=== PATIENT | male | born 1970 | race Two or more races ===

== ENCOUNTER 2023-01-16 23:03 | Inpatient (IN) | payer OTHER ==
[~2023-01-16] VITALS: Ht 167.6 cm; Wt 90.7 kg
[2023-01-16] MEDS ORDERED: ONDANSETRON HCL/PF 4 MG/2 ML VIAL ONE (23:41)
[2023-01-17] MEDS ORDERED: IV NS 0.9% 1,000 ML BAG IV ONE
[2023-01-17] MEDS ORDERED: ONDANSETRON HCL/PF 4 MG/2 ML VIAL IVP ONE
[2023-01-17 00:21] LABS: BASOPHILS # (AUTO) 0.1 K/uL (0.0-0.2); BASOPHILS % (AUTO) 0.9 % (0.0-2.0); EOSINOPHILS # (AUTO) 0.1 K/uL (0.0-0.7); EOSINOPHILS % (AUTO) 0.4 % (0.0-6.0); HEMATOCRIT 48 % (39-51); HEMOGLOBIN 15.3 g/dL (13.5-17.5); LYMPHOCYTES # (AUTO) 0.4 K/uL (0.8-4.8); LYMPHOCYTES % (AUTO) 2.5 % (20.0-44.0); MEAN CORPUSCULAR HEMOGLOBIN 30 PG (26.0-33.0); MEAN CORPUSCULAR HGB CONC 32 g/dl (31.0-36.0); MEAN CORPUSCULAR VOLUME 93 fL (80-96); MONOCYTES # (AUTO) 1.1 K/uL (0.1-1.30); MONOCYTES % (AUTO) 6.8 % (2.0-12.0); NEUTROPHILS % (AUTO) 89.4 % (43.0-81.0); PLATELET COUNT (AUTO) 352 K/uL (150-450); RED BLOOD CELL COUNT(AUTO) 5.11 MIL/uL (4.5-6.0); RED CELL DISTRIBUTION WIDTH 15.7 % (11.5-15.0); WHITE BLOOD COUNT (AUTO) 15.7 K/uL (4.3-11.0)
[2023-01-17 00:23] LABS: INR 0.97 (0.91-1.10); PARTIAL THROMBOPLASTIN TIME 31.2 SEC (24.3-34.3); PROTHROMBIN TIME 10.3 SECS (9.2-11.1)
[2023-01-17] MEDS ORDERED: IOHEXOL-300 100 ML VIAL IV ONE ×2 (01:02→02:02)
[2023-01-17] MEDS ORDERED: IV NS 0.9% 250 ML IV ONE ×2 (01:02→02:02)
[2023-01-17] MEDS ORDERED: CT SWABBABLE VALVE TRANS SET 1 EA INFUS.SET MC ONE ×2 (01:02→02:02)
[2023-01-17 01:06] LABS: LACTIC ACID 2.9 mmol/L (0.4-2.0)
[2023-01-17] MEDS ORDERED: PIPERACI/TAZO 3.375GM/D5W 50ML PB IV ONE (01:17)
[2023-01-17] MEDS ORDERED: PIPERACILLIN /TAZOBACTAM 3.375 G in IV D5W 50 ML IV ONE (01:30)
[2023-01-17] MEDS ORDERED: IV NS 0.9% 1,000 ML IV ONE ×2 (01:30→05:00)
[2023-01-17 01:44] LABS: ALANINE AMINOTRANSFERASE 22 U/L (12-78); ALBUMIN 4.1 g/dL (3.4-5.0); ALKALINE PHOSPHATASE 153 U/L (46-116); ASPARTATE AMINOTRANSFERASE 14 U/L (15-37); BILIRUBIN,DIRECT 0.1 mg/dL (0.0-0.2); BILIRUBIN,TOTAL 0.7 mg/dL (0.2-1.0); CALCIUM, SERUM 10.1 mg/dL (8.5-10.1); CARBON DIOXIDE 27 mmol/L (21-32); CHLORIDE 96 mmol/L (98-107); CREATININE 2.1 mg/dL (0.6-1.3); GLUCOSE 161 mg/dL (74-106); LIPASE 29 U/L (16-77); SODIUM SERUM 137 mmol/L (136-145); TOTAL PROTEIN, SERUM 8.7 g/dL (6.4-8.2); UREA NITROGEN, BLOOD 28 mg/dL (7-18)
[2023-01-17] MEDS ORDERED: ONDANSETRON HCL/PF - ER 4 MG/2 ML VIAL IV ONE (04:00)
[2023-01-17] MEDS ORDERED: ONDANSETRON HCL/PF 4 MG/2 ML VIAL ONE (04:22)
[2023-01-17] MEDS ORDERED: FENTANYL PF 250MCG/5ML AMPUL ONE (06:23)
[2023-01-17] MEDS ORDERED: MIDAZOLAM HCL 2 MG/2ML VIAL ONE (06:24)
[2023-01-17] MEDS ORDERED: HYDROMORPHONE INJ 2 MG/ML DISP.SYRIN ONE (06:24)
[2023-01-17] MEDS ORDERED: FAMOTIDINE/PF INJ 20 MG/2 ML VIAL IV ONE (06:24)
[2023-01-17] MEDS ORDERED: ANESTHESIA TRAY IN PYXIS 1 EA TRAY MC ONE (06:27)
[2023-01-17] MEDS ORDERED: BUPIVACAINE 0.5 % PF 150 MG/30 ML VIAL ONE (06:27)
[2023-01-17] MEDS ORDERED: LIDOCAINE 1%-EPI 1:100,000 20 ML VIAL ONE (06:28)
[2023-01-17] MEDS ORDERED: ONDANSETRON HCL/PF 4 MG/2 ML VIAL IVP PRN (06:30)
[2023-01-17] MEDS ORDERED: ACETAMINOPHEN 650 MG/SUPP.RECT RC PRN (06:30)
[2023-01-17] MEDS ORDERED: ENOXAPARIN SODIUM 40 MG/0.4 ML DISP.SYRIN SQ SCH ×2 (06:30→19:00)
[2023-01-17] MEDS ORDERED: ACETAMINOPHEN 325 MG TABLET PO PRN (06:30)
[2023-01-17] MEDS ORDERED: METRONIDAZOLE 500MG/ NS 100ML 100 ML IV ONE (07:27)
[2023-01-17] MEDS ORDERED: HYDROMORPHONE 1 MG/1 ML DISP.SYRIN ONE (08:57)
[2023-01-17] MEDS ORDERED: PIPERACILLIN /TAZOBACTAM 3.375 G in IV D5W 50 ML IV SCH (09:00)
[2023-01-17] MEDS: PANTOPRAZOLE 40 MG VIAL IV SCH (09:00)
[2023-01-17] MEDS: MORPHINE SULFATE INJ 2 MG/ML DISP.SYRIN IV PRN ×2 (11:08→20:57)
[2023-01-17] MEDS: ZOSYN IVPB 3.375 G in IV D5W 50ml IV SCH ×2 (11:08→18:05)
[2023-01-17] MEDS: IV NS 0.9% 1,000 ML IV PRN (11:09)
[2023-01-17 12:00] VITALS: BP 114/71; TEMP 97.7; O2SAT 96
[2023-01-17 14:33] LABS: CALCIUM, SERUM 8.3 mg/dL (8.5-10.1); CREATININE 2.4 mg/dL (0.6-1.3); MAGNESIUM 1.8 mg/dL (1.8-2.4); PHOSPHORUS 7.7 mg/dL (2.5-4.9); POTASSIUM 3.4 mmol/L (3.5-5.1)
[2023-01-17 14:48] LABS: THYROID STIMULATING HORMONE 2.611 uIU/mL (0.358-3.74); URIC ACID 9.7 mg/dL (2.6-7.2)
[2023-01-17] MEDS: KETOROLAC TROMETHAMINE INJ 30 MG/ML VIAL IV PRN (15:10)
[2023-01-17 16:00] VITALS: BP 109/72; TEMP 97.9; O2SAT 94
[2023-01-17] MEDS: POTASSIUM CL. PREMIX PERIPHER. 50 ML IV SCH ×4 (18:52→22:46)
[2023-01-17 20:55] VITALS: BP 96/68; TEMP 98.8; O2SAT 96
[2023-01-17] MEDS: ENOXAPARIN SODIUM 100 MG/ML DISP.SYRIN SQ SCH (20:56)
[2023-01-18] MEDS: ZOSYN IVPB 3.375 G in IV D5W 50ml IV SCH ×4 (00:51→17:32)
[2023-01-18] MEDS: MORPHINE SULFATE INJ 2 MG/ML DISP.SYRIN IV PRN ×2 (03:36→07:43)
[2023-01-18 05:22] VITALS: BP 120/88; TEMP 98.2; O2SAT 98
[2023-01-18 06:33] LABS: BASOPHILS % (AUTO) 0.2 % (0.0-2.0); EOSINOPHILS # (AUTO) 0.1 K/uL (0.0-0.7); EOSINOPHILS % (AUTO) 1.6 % (0.0-6.0); HEMATOCRIT 38 % (39-51); HEMOGLOBIN 12.6 g/dL (13.5-17.5); LYMPHOCYTES % (AUTO) 14.3 % (20.0-44.0); MEAN CORPUSCULAR HEMOGLOBIN 31 PG (26.0-33.0); MEAN CORPUSCULAR HGB CONC 33 g/dl (31.0-36.0); MEAN CORPUSCULAR VOLUME 93 fL (80-96); MONOCYTES # (AUTO) 0.9 K/uL (0.1-1.30); NEUTROPHILS % (AUTO) 70.9 % (43.0-81.0); PLATELET COUNT (AUTO) 272 K/uL (150-450); RED CELL DISTRIBUTION WIDTH 15.4 % (11.5-15.0)
[2023-01-18 06:54] LABS: ALBUMIN 2.6 g/dL (3.4-5.0); BILIRUBIN,TOTAL 0.5 mg/dL (0.2-1.0); CALCIUM, SERUM 8.1 mg/dL (8.5-10.1); CREATININE 2.2 mg/dL (0.6-1.3); PHOSPHORUS 3.6 mg/dL (2.5-4.9); POTASSIUM 3.4 mmol/L (3.5-5.1); TOTAL PROTEIN, SERUM 6.6 g/dL (6.4-8.2)
[2023-01-18 08:00] VITALS: BP 121/74; TEMP 97.7; O2SAT 95
[2023-01-18] MEDS: PANTOPRAZOLE 40 MG VIAL IV SCH (08:52)
[2023-01-18] MEDS: KETOROLAC TROMETHAMINE INJ 30 MG/ML VIAL IV PRN ×2 (10:38→21:25)
[2023-01-18] MEDS ORDERED: POTASSIUM CL. PREMIX PERIPHER. 50 ML IV SCH (11:00)
[2023-01-18] MEDS: IV NS 0.9% 1,000 ML IV PRN (15:21)
[2023-01-18 16:11] VITALS: BP 127/76; TEMP 98.2; O2SAT 97
[2023-01-18 20:00] VITALS: BP 151/109; TEMP 98; O2SAT 96
[2023-01-18] MEDS: ENOXAPARIN SODIUM 100 MG/ML DISP.SYRIN SQ SCH (20:22)
[2023-01-19] VITALS (7 sets, daily range): BP systolic 136–171; BP diastolic 76–101; TEMP 97–98.6; O2SAT 95–98
[2023-01-19] MEDS: ZOSYN IVPB 3.375 G in IV D5W 50ml IV SCH ×4 (00:55→17:40)
[2023-01-19] MEDS: IV NS 0.9% 1,000 ML IV PRN (05:16)
[2023-01-19 06:59] LABS: BASOPHILS % (AUTO) 0.2 % (0.0-2.0); EOSINOPHILS # (AUTO) 0.3 K/uL (0.0-0.7); EOSINOPHILS % (AUTO) 4.7 % (0.0-6.0); HEMATOCRIT 35 % (39-51); HEMOGLOBIN 11.5 g/dL (13.5-17.5); LYMPHOCYTES % (AUTO) 13.9 % (20.0-44.0); MEAN CORPUSCULAR HEMOGLOBIN 31 PG (26.0-33.0); MEAN CORPUSCULAR HGB CONC 33 g/dl (31.0-36.0); MEAN CORPUSCULAR VOLUME 94 fL (80-96); MONOCYTES # (AUTO) 0.7 K/uL (0.1-1.30); MONOCYTES % (AUTO) 10.1 % (2.0-12.0); NEUTROPHILS % (AUTO) 71.1 % (43.0-81.0); PLATELET COUNT (AUTO) 246 K/uL (150-450); RED BLOOD CELL COUNT(AUTO) 3.76 MIL/uL (4.5-6.0); RED CELL DISTRIBUTION WIDTH 14.8 % (11.5-15.0)
[2023-01-19 07:46] LABS: CALCIUM, SERUM 8.2 mg/dL (8.5-10.1); CREATININE 1.6 mg/dL (0.6-1.3); MAGNESIUM 2.1 mg/dL (1.8-2.4); PHOSPHORUS 2.3 mg/dL (2.5-4.9); POTASSIUM 3.3 mmol/L (3.5-5.1)
[2023-01-19 08:07] LABS: *SPE A/G RATIO 0.8 (0.7-1.7); *SPE ALBUMIN 2.7 g/dL (2.9-4.4); *SPE ALPHA-1-GLOBULIN 0.3 g/dL (0.0-0.4); *SPE ALPHA-2-GLOBULIN 0.6 g/dL (0.4-1.0); *SPE GLOBULIN, TOTAL 3.2 g/dL (2.2-3.9); *SPE M-SPIKE Not Observed g/dL (Not Observed); *SPE PROTEIN TOTAL 5.9 g/dL (6.0-8.5); *SPEGAMMA GLOBULIN 1.2 g/dL (0.4-1.8)
[2023-01-19] MEDS: PANTOPRAZOLE 40 MG VIAL IV SCH (08:42)
[2023-01-19] MEDS: KETOROLAC TROMETHAMINE INJ 30 MG/ML VIAL IV PRN ×2 (08:45→17:40)
[2023-01-19 09:07] LABS: PTH, INTACT 103 pg/mL (15-65)
[2023-01-19] MEDS: POTASSIUM CL. PREMIX PERIPHER. 50 ML IV SCH ×2 (10:03→10:55)
[2023-01-19] MEDS: IV 1/2NS 1000 ML 1,000 ML IV PRN (12:53)
[2023-01-19] MEDS ORDERED: K PHOS NEUTRAL 250 MG TABLET PO ONE (15:30)
[2023-01-19] MEDS ORDERED: ENOXAPARIN SODIUM 100 MG/ML DISP.SYRIN SQ SCH (20:00)
[2023-01-20] VITALS (9 sets, daily range): BP systolic 145–186; BP diastolic 80–110; TEMP 97.1–98.6; O2SAT 94–99
[2023-01-20] MEDS: ZOSYN IVPB 3.375 G in IV D5W 50ml IV SCH ×5 (00:09→23:50)
[2023-01-20] MEDS: IV 1/2NS 1000 ML 1,000 ML IV PRN ×2 (00:09→17:41)
[2023-01-20] MEDS: KETOROLAC TROMETHAMINE INJ 30 MG/ML VIAL IV PRN (02:22)
[2023-01-20] MEDS: hydrALAZINE HCL IV 20 MG VIAL IV PRN ×2 (06:07→10:07)
[2023-01-20 06:17] LABS: BASOPHILS % (AUTO) 0.3 % (0.0-2.0); EOSINOPHILS # (AUTO) 0.3 K/uL (0.0-0.7); EOSINOPHILS % (AUTO) 4.7 % (0.0-6.0); HEMATOCRIT 34 % (39-51); HEMOGLOBIN 11.1 g/dL (13.5-17.5); LYMPHOCYTES % (AUTO) 14.3 % (20.0-44.0); MEAN CORPUSCULAR HEMOGLOBIN 31 PG (26.0-33.0); MEAN CORPUSCULAR HGB CONC 33 g/dl (31.0-36.0); MEAN CORPUSCULAR VOLUME 93 fL (80-96); MONOCYTES # (AUTO) 0.5 K/uL (0.1-1.30); MONOCYTES % (AUTO) 6.9 % (2.0-12.0); NEUTROPHILS # (AUTO) 5.3 K/uL (1.8-8.9); NEUTROPHILS % (AUTO) 73.8 % (43.0-81.0); PLATELET COUNT (AUTO) 254 K/uL (150-450); RED BLOOD CELL COUNT(AUTO) 3.65 MIL/uL (4.5-6.0); RED CELL DISTRIBUTION WIDTH 14.3 % (11.5-15.0); WHITE BLOOD COUNT (AUTO) 7.2 K/uL (4.3-11.0)
[2023-01-20 06:53] LABS: ALBUMIN 2.4 g/dL (3.4-5.0); BILIRUBIN,TOTAL 0.4 mg/dL (0.2-1.0); CALCIUM, SERUM 8.1 mg/dL (8.5-10.1); CREATININE 1.3 mg/dL (0.6-1.3); MAGNESIUM 1.9 mg/dL (1.8-2.4); PHOSPHORUS 2.1 mg/dL (2.5-4.9); POTASSIUM 3.2 mmol/L (3.5-5.1); TOTAL PROTEIN, SERUM 6.2 g/dL (6.4-8.2)
[2023-01-20] MEDS: PANTOPRAZOLE 40 MG VIAL IV SCH (08:27)
[2023-01-20] MEDS: ASPIRIN 81 MG TAB.CHEW PO SCH (08:27)
[2023-01-20] MEDS: POTASSIUM CL. PREMIX PERIPHER. 50 ML IV SCH ×4 (10:07→14:01)
[2023-01-20] MEDS: MORPHINE SULFATE INJ 2 MG/ML DISP.SYRIN IV PRN ×2 (11:47→16:31)
[2023-01-20] MEDS ORDERED: NEUTRA PHOS 1 POWD.PACKET PO ONE (16:00)
[2023-01-20] MEDS: ENOXAPARIN SODIUM 40 MG/0.4 ML DISP.SYRIN SQ SCH (16:32)
[2023-01-21] VITALS: BP 155/89; TEMP 98.2; O2SAT 99
[2023-01-21] MEDS: IV 1/2NS 1000 ML 1,000 ML IV PRN (03:41)
[2023-01-21 04:00] VITALS: BP 154/92; TEMP 97.9; O2SAT 98
[2023-01-21] MEDS: ZOSYN IVPB 3.375 G in IV D5W 50ml IV SCH (05:10)
[2023-01-21 06:40] LABS: BASOPHILS % (AUTO) 0.2 % (0.0-2.0); EOSINOPHILS # (AUTO) 0.4 K/uL (0.0-0.7); EOSINOPHILS % (AUTO) 5.4 % (0.0-6.0); HEMATOCRIT 35 % (39-51); HEMOGLOBIN 11.5 g/dL (13.5-17.5); LYMPHOCYTES # (AUTO) 0.8 K/uL (0.8-4.8); MEAN CORPUSCULAR HEMOGLOBIN 30 PG (26.0-33.0); MEAN CORPUSCULAR HGB CONC 33 g/dl (31.0-36.0); MEAN CORPUSCULAR VOLUME 92 fL (80-96); MONOCYTES # (AUTO) 0.6 K/uL (0.1-1.30); MONOCYTES % (AUTO) 8.7 % (2.0-12.0); NEUTROPHILS # (AUTO) 5.1 K/uL (1.8-8.9); NEUTROPHILS % (AUTO) 73.7 % (43.0-81.0); PLATELET COUNT (AUTO) 260 K/uL (150-450); RED BLOOD CELL COUNT(AUTO) 3.85 MIL/uL (4.5-6.0); RED CELL DISTRIBUTION WIDTH 14.4 % (11.5-15.0); WHITE BLOOD COUNT (AUTO) 6.9 K/uL (4.3-11.0)
[2023-01-21 07:09] LABS: ALBUMIN 2.5 g/dL (3.4-5.0); BILIRUBIN,TOTAL 0.5 mg/dL (0.2-1.0); CALCIUM, SERUM 8.2 mg/dL (8.5-10.1); CREATININE 0.9 mg/dL (0.6-1.3); MAGNESIUM 1.8 mg/dL (1.8-2.4); PHOSPHORUS 2.4 mg/dL (2.5-4.9); POTASSIUM 3.3 mmol/L (3.5-5.1); TOTAL PROTEIN, SERUM 6.5 g/dL (6.4-8.2)
[2023-01-21 08:00] VITALS: BP 166/98; TEMP 98.1; O2SAT 96
[2023-01-21] MEDS: hydrALAZINE HCL IV 20 MG VIAL IV PRN (08:44)
[2023-01-21] MEDS: ASPIRIN 81 MG TAB.CHEW PO SCH ×2 (09:00→09:18)
[2023-01-21] MEDS: PANTOPRAZOLE 40 MG TABLET.DR PO SCH ×2 (09:00→09:18)
[2023-01-21] MEDS ORDERED: POTASSIUM CHLORIDE 20 MEQ TAB.PRT.SR PO ONE (11:00)
[2023-01-21] MEDS: MORPHINE SULFATE INJ 2 MG/ML DISP.SYRIN IV PRN (11:30)
[2023-01-21] MEDS ORDERED: PIPERACILLIN /TAZOBACTAM 3.375 G in IV D5W 100 ML IV SCH (13:00)
[2023-01-21 16:00] VITALS: BP 146/84; TEMP 97.9; O2SAT 97
[2023-01-21] MEDS ORDERED: ASPI-1169 PO (16:21)
[2023-01-21] MEDS: ENOXAPARIN SODIUM 40 MG/0.4 ML DISP.SYRIN SQ SCH (16:24)
[2023-01-21] MEDS ORDERED: NEUTRA PHOS 1 POWD.PACKET PO ONE (18:00)
== END 2023-01-21 18:40 | disposition home or self-care (01) | DRG 230 ==
LOC: ER 23:05 → TELE 01-17 05:37
PROVIDERS: ADMIT Student in an Organized Health Care Education/Training Program; ATTEND Student in an Organized Health Care Education/Training Program
PROC: 0DB80ZZ Excision of Small Intestine, Open Approach (ICD-10-PCS; principal; 2023-01-17)
PROC: 0DBU0ZZ Excision of Omentum, Open Approach (ICD-10-PCS; 2023-01-17)
PROC: 0DN80ZZ Release Small Intestine, Open Approach (ICD-10-PCS; 2023-01-17)
PROC: 0WQF0ZZ Repair Abdominal Wall, Open Approach (ICD-10-PCS; 2023-01-17)
DX: K43.0 Incisional hernia with obstruction, without gangrene (principal); N17.0 Acute kidney failure with tubular necrosis; I77.79 Dissection of other specified artery; K55.1 Chronic vascular disorders of intestine; E87.0 Hyperosmolality and hypernatremia; E87.20 Acidosis, unspecified; R65.10 Systemic inflammatory response syndrome (SIRS) of non-infectious origin without acute organ dysfunction; M46.28 Osteomyelitis of vertebra, sacral and sacrococcygeal region; E66.9 Obesity, unspecified; E87.6 Hypokalemia; F17.210 Nicotine dependence, cigarettes, uncomplicated; D72.829 Elevated white blood cell count, unspecified; Z20.822 Contact with and (suspected) exposure to COVID-19; Z68.32 Body mass index [BMI] 32.0-32.9, adult; M89.8X9 Other specified disorders of bone, unspecified site; I69.354 Hemiplegia and hemiparesis following cerebral infarction affecting left non-dominant side; I10 Essential (primary) hypertension; L89.159 Pressure ulcer of sacral region, unspecified stage
CPT/HCPCS: 36415; 70450-TC; 71045-TC; 76770-TC; 80048-TC; 80053-TC; 80061-TC; 80076-TC; 82533; 82550-TC; 83605-TC; 83690-TC; 83735-TC; 83970; 84100-TC; 84155; 84165; 84443-TC; 84484-TC; 84550-TC; 85025-TC; 85730-TC; 86850-TC; 87040-TC; 88307-TC; 97112-TC; 97116-TC; 97530-TC; A4223; A6209; A6403; C9113; C9803; G0378; J0330; J0360; J0690; J1170; J1650; J1885; J2250; J2270; J2405; J2543; J2704; J2765; J3010; J3480; J3490; J7030; J7050; J7060; Q9967